=== PATIENT | male | born 1960 | race Caucasian/White ===

== ENCOUNTER 2023-01-20 11:21 | Inpatient (IN) | payer OTHER ==
[2023-01-20 12:10] LABS: #Basophils 0.1 10x3/uL (0.0-0.2); #Eosinphils 0.3 10x3/uL (0.0-0.5); #Monocytes 0.5 10x3/uL (0.0-1.1); #Neutrophils 4.5 10x3/uL (1.5-8.4); %Basophils 0.7 % (0.0-2.0); %Eosinophils 3.5 % (0.0-6.0); %Lymphocytes 30.5 % (18.0-47.0); %Monocytes 5.9 % (0.0-10.0); %Neutrophils 59.1 % (40.0-75.0); Hematocrit 42.7 % (38.8-50.0); Hemoglobin 14.2 g/dL (13.5-17.5); Mean Corpuscular HGB CONC 33.3 g/dL (32.0-36.0); Mean Corpuscular Hemoglobin 32.1 pg (27.0-33.0); Mean Corpuscular Volume 96.4 fl (81.2-95.1); Mean Platelet Volume 10.7 fl (7.4-10.4); Platelet Count 144 10x3/uL (150-450); RBC Distribution Width 12.6 % (11.5-14.5); Red Blood Cell (RBC) Count 4.43 10x6/uL (4.32-5.72); White Blood Cell (WBC) Count 7.6 10x3/uL (3.5-10.5)
[2023-01-20 12:24] LABS: PTT 29.5 sec (22.0-33.0); Prothrombin Time 10.7 sec (9.5-12.1)
[2023-01-20 12:36] LABS: ALT (SGPT) 31 U/L (8-55); AST (SGOT) 26 U/L (5-34); Albumin 4.3 g/dL (3.4-4.8); Alkaline Phosphatase 50 U/L (40-110); Anion Gap 13 mmol/L (10-20); BUN (Urea Nitrogen) 20 mg/dL (8.4-25.7); Bilirubin, Total 0.6 mg/dL (0.2-1.2); Calc. Creatinine Clearance 0 mL/min (70-130); Calcium 9.2 mg/dL (7.8-10.44); Carbon Dioxide 26 mmol/L (23-31); Chloride 100 mmol/L (98-107); Estimated GFR 55; Globulin 3.6 g/dL (2.4-3.5); Glucose 197 mg/dL (80-115); Magnesium 2.2 mg/dL (1.6-2.6); Protein, Total 7.9 g/dL (5.8-8.1); Sodium 135 mmol/L (136-145)
[2023-01-20] MEDS ORDERED: Morphine 4 MG/ML VIAL ONE (13:09)
[2023-01-20] MEDS ORDERED: Communication Order-Pharmacy FS SCH (13:45)
[2023-01-20] MEDS ORDERED: Acetaminophen 325 MG TAB PO PRN (13:47)
[2023-01-20] MEDS ORDERED: Morphine 2 MG/ML VIAL SLOW IVP PRN (14:08)
[2023-01-20] MEDS: Heparin 5,000 UNITS/ML VIAL SC SCH ×2 (16:00→19:44)
[2023-01-20] MEDS: HYDROcodone/Acetaminophen 5/325 mg Tablet PO PRN (16:10)
[2023-01-20] MEDS ORDERED: Dextrose 50% Abboject 50 ML SYRINGE SLOW IVP PRN (18:06)
[2023-01-20] MEDS ORDERED: HumaLOG 300 UNITS/3 ML VIAL SC PRN (18:06)
[2023-01-20] MEDS ORDERED: Dextrose 5% in Water 1,000 ML IV PRN (18:06)
[2023-01-20] MEDS ORDERED: Glucagon 1 MG/ML KIT IM PRN (18:06)
[2023-01-20] MEDS ORDERED: hydrALAZINE 20 MG/ML VIAL SLOW IVP PRN (18:08)
[2023-01-20] MEDS ORDERED: FLU VACC QS2023-24(6MOS UP)/PF 60 MCG/0.5 ML SYRINGE IM ONE (19:15)
[2023-01-20] MEDS: Gabapentin 400 MG CAP PO SCH (19:43)
[2023-01-20] MEDS: Carvedilol 3.125 MG TAB PO SCH (19:43)
[2023-01-20] MEDS: Ranolazine 500 MG ER.TAB PO SCH (19:43)
[2023-01-20] MEDS: Morphine 2 MG/ML VIAL SLOW IVP PRN (23:27)
[2023-01-21] MEDS: HYDROcodone/Acetaminophen 5/325 mg Tablet PO PRN (00:15)
[2023-01-21] MEDS: Morphine 2 MG/ML VIAL SLOW IVP PRN ×3 (04:04→18:53)
[2023-01-21] MEDS ORDERED: Lidocaine 1% (PF) 30 ML VIAL ONE (06:17)
[2023-01-21 06:23] LABS: #Basophils 0.1 10x3/uL (0.0-0.2); #Eosinphils 0.3 10x3/uL (0.0-0.5); #Monocytes 0.5 10x3/uL (0.0-1.1); %Basophils 0.8 % (0.0-2.0); %Eosinophils 4.4 % (0.0-6.0); %Lymphocytes 44.4 % (18.0-47.0); %Monocytes 7.5 % (0.0-10.0); %Neutrophils 42.3 % (40.0-75.0); Hematocrit 40.9 % (38.8-50.0); Hemoglobin 13.8 g/dL (13.5-17.5); Mean Corpuscular HGB CONC 33.7 g/dL (32.0-36.0); Mean Corpuscular Hemoglobin 32.5 pg (27.0-33.0); Mean Corpuscular Volume 96.5 fl (81.2-95.1); Mean Platelet Volume 10.7 fl (7.4-10.4); Platelet Count 135 10x3/uL (150-450); RBC Distribution Width 12.6 % (11.5-14.5); Red Blood Cell (RBC) Count 4.24 10x6/uL (4.32-5.72); White Blood Cell (WBC) Count 7.1 10x3/uL (3.5-10.5)
[2023-01-21 06:29] LABS: PTT 29.8 sec (22.0-33.0); Prothrombin Time 10.7 sec (9.5-12.1)
[2023-01-21 06:34] LABS: ALT (SGPT) 27 U/L (8-55); AST (SGOT) 23 U/L (5-34); Alkaline Phosphatase 54 U/L (40-110); Anion Gap 12 mmol/L (10-20); BUN (Urea Nitrogen) 19 mg/dL (8.4-25.7); Bilirubin, Total 0.3 mg/dL (0.2-1.2); Calc. Creatinine Clearance 79 mL/min (70-130); Calcium 8.8 mg/dL (7.8-10.44); Carbon Dioxide 28 mmol/L (23-31); Cardiac Risk 4.3 (Less than 4.5); Chloride 103 mmol/L (98-107); Cholesterol 77 mg/dl (< 200 Desired); Estimated GFR 61; Globulin 3.3 g/dL (2.4-3.5); Glucose 115 mg/dL (80-115); HDL Cholesterol 18 mg/dL (>60 Neg Risk); LDL Cholesterol, Calculated 24 mg/dL; Potassium 4.4 mmol/L (3.5-5.1); Protein, Total 7.3 g/dL (5.8-8.1); Sodium 139 mmol/L (136-145); Triglycerides 175 mg/dL (Less than 150)
[2023-01-21] MEDS ORDERED: fentaNYL 50 mcg/mL 1 mL Vial ONE (06:41)
[2023-01-21] MEDS ORDERED: Midazolam HCl 2 mg/2 ml Vial ONE (06:41)
[2023-01-21] MEDS ORDERED: Heparin 10,000 UNITS/ 10 ML VIAL ONE ×2 (06:42→07:23)
[2023-01-21] MEDS ORDERED: Protamine Sulfate 50 MG/5 ML VIAL ONE (08:14)
[2023-01-21] MEDS: Sodium Chloride 0.9% 1,000 ML IV SCH ×2 (09:30→18:45)
[2023-01-21] MEDS ORDERED: Iopamidol 300 61% 100 ML VIAL FS ONE (10:21)
[2023-01-21] MEDS: Gabapentin 400 MG CAP PO SCH ×3 (12:39→21:18)
[2023-01-21] MEDS: Aspirin 81 mg Enteric Coated Tablet PO SCH (12:39)
[2023-01-21] MEDS: Carvedilol 3.125 MG TAB PO SCH ×2 (12:39→21:18)
[2023-01-21] MEDS: Lisinopril 2.5 MG TAB PO SCH (12:40)
[2023-01-21] MEDS: Atorvastatin Calcium 40 MG TAB PO SCH (12:40)
[2023-01-21] MEDS: Empagliflozin 10 MG TAB PO SCH (12:40)
[2023-01-21] MEDS: Furosemide 20 MG TAB PO SCH (12:40)
[2023-01-21] MEDS: Ranolazine 500 MG ER.TAB PO SCH ×2 (12:41→21:18)
[2023-01-21 13:11] LABS: Hemoglobin A1c 6.2 % (4.0-6.0)
[2023-01-21] MEDS ORDERED: TICAGRELOR 90 MG TABLET PO SCH (21:00)
[2023-01-22 04:53] LABS: #Eosinphils 0.2 10x3/uL (0.0-0.5); #Monocytes 0.7 10x3/uL (0.0-1.1); #Neutrophils 4.3 10x3/uL (1.5-8.4); %Basophils 0.5 % (0.0-2.0); %Eosinophils 2.8 % (0.0-6.0); %Lymphocytes 30.8 % (18.0-47.0); %Monocytes 8.7 % (0.0-10.0); %Neutrophils 56.9 % (40.0-75.0); Hemoglobin 13.2 g/dL (13.5-17.5); Mean Corpuscular HGB CONC 33.8 g/dL (32.0-36.0); Mean Corpuscular Hemoglobin 32.6 pg (27.0-33.0); Mean Corpuscular Volume 96.3 fl (81.2-95.1); Mean Platelet Volume 10.6 fl (7.4-10.4); Platelet Count 127 10x3/uL (150-450); RBC Distribution Width 12.3 % (11.5-14.5); Red Blood Cell (RBC) Count 4.05 10x6/uL (4.32-5.72); White Blood Cell (WBC) Count 7.5 10x3/uL (3.5-10.5)
[2023-01-22 05:17] LABS: ALT (SGPT) 23 U/L (8-55); AST (SGOT) 23 U/L (5-34); Albumin 3.7 g/dL (3.4-4.8); Alkaline Phosphatase 37 U/L (40-110); Anion Gap 13 mmol/L (10-20); BUN (Urea Nitrogen) 16 mg/dL (8.4-25.7); Bilirubin, Total 0.6 mg/dL (0.2-1.2); Calc. Creatinine Clearance 89 mL/min (70-130); Calcium 8.7 mg/dL (7.8-10.44); Carbon Dioxide 23 mmol/L (23-31); Chloride 102 mmol/L (98-107); Estimated GFR 70; Globulin 3.3 g/dL (2.4-3.5); Glucose 91 mg/dL (80-115); Potassium 4.2 mmol/L (3.5-5.1); Sodium 134 mmol/L (136-145)
[2023-01-22] MEDS ORDERED: Rivaroxaban 2.5 MG TAB PO SCH (09:00)
[2023-01-22] MEDS ORDERED: Clopidogrel Bisulfate 75 MG TAB PO SCH (09:00)
[2023-01-22] MEDS: Empagliflozin 10 MG TAB PO SCH (09:03)
[2023-01-22] MEDS: Furosemide 20 MG TAB PO SCH (09:04)
[2023-01-22] MEDS: Lisinopril 2.5 MG TAB PO SCH (09:04)
[2023-01-22] MEDS: Carvedilol 3.125 MG TAB PO SCH (09:04)
[2023-01-22] MEDS: Atorvastatin Calcium 40 MG TAB PO SCH (09:04)
[2023-01-22] MEDS: Aspirin 81 mg Enteric Coated Tablet PO SCH (09:04)
[2023-01-22] MEDS: Gabapentin 400 MG CAP PO SCH ×2 (09:05→14:32)
[2023-01-22] MEDS: Ranolazine 500 MG ER.TAB PO SCH (09:05)
[2023-01-22 12:12] VITALS: BP 113/56; TEMP 97.9
== END 2023-01-22 15:45 | disposition home or self-care (01) | DRG 253 ==
LOC: CSHERS 11:21 → SUATTDRO 11:21 → CSHTELE 13:41
PROVIDERS: ADMIT Internal Medicine; ATTEND Internal Medicine
PROC: B4101ZZ Fluoroscopy of Abdominal Aorta using Low Osmolar Contrast (ICD-10-PCS; principal; 2023-01-21)
PROC: 047K3Z1 Dilation of Right Femoral Artery using Drug-Coated Balloon, Percutaneous Approach (ICD-10-PCS; 2023-01-21)
PROC: 047M3Z1 Dilation of Right Popliteal Artery using Drug-Coated Balloon, Percutaneous Approach (ICD-10-PCS; 2023-01-21)
PROC: 047T3Z1 Dilation of Right Peroneal Artery using Drug-Coated Balloon, Percutaneous Approach (ICD-10-PCS; 2023-01-21)
PROC: B41G1ZZ Fluoroscopy of Left Lower Extremity Arteries using Low Osmolar Contrast (ICD-10-PCS; 2023-01-21)
PROC: B41F1ZZ Fluoroscopy of Right Lower Extremity Arteries using Low Osmolar Contrast (ICD-10-PCS; 2023-01-21)
DX: I70.221 Atherosclerosis of native arteries of extremities with rest pain, right leg (principal); I50.42 Chronic combined systolic (congestive) and diastolic (congestive) heart failure; N17.9 Acute kidney failure, unspecified; E11.51 Type 2 diabetes mellitus with diabetic peripheral angiopathy without gangrene; I25.10 Atherosclerotic heart disease of native coronary artery without angina pectoris; E78.5 Hyperlipidemia, unspecified; E87.71 Transfusion associated circulatory overload; I11.0 Hypertensive heart disease with heart failure; Z82.49 Family history of ischemic heart disease and other diseases of the circulatory system; Z87.891 Personal history of nicotine dependence; Z79.899 Other long term (current) drug therapy; Z79.82 Long term (current) use of aspirin; Z79.84 Long term (current) use of oral hypoglycemic drugs; Z95.5 Presence of coronary angioplasty implant and graft
CPT/HCPCS: 36415; 36416; 37224; 75716; 75736; 75774; 80053; 80061; 83036; 83735; 83880; 85025; 85347; 85610; 85730; 93923; 96374; 99152; 99153; C1725; C1760; C1769; C1894; C2623; J1644; J2001; J2250; J2270; J2272; J2720; J3010; J7050

== ENCOUNTER 2024-01-12 15:40 | Inpatient (IN) | payer OTHER ==
[~2024-01-12 15:40] MED LIST: Iopamidol 300 61% 100 ML VIAL FS ONE
[2024-01-12] MEDS ORDERED: Ondansetron PF 4 MG/2 ML Vial ONE (16:10)
[2024-01-12] MEDS ORDERED: Acetaminophen 500 MG TAB ONE (16:11)
[2024-01-12 16:51] LABS: ALT (SGPT) 15 U/L (8-55); AST (SGOT) 16 U/L (5-34); Albumin 3.5 g/dL (3.4-4.8); Alkaline Phosphatase 35 U/L (40-110); Anion Gap 13 mmol/L (10-20); BUN (Urea Nitrogen) 25 mg/dL (8.4-25.7); Bilirubin, Total 1.1 mg/dL (0.2-1.2); Calc. Creatinine Clearance 0 mL/min (70-130); Calcium 9.1 mg/dL (7.8-10.44); Carbon Dioxide 24 mmol/L (23-31); Chloride 99 mmol/L (98-107); Estimated GFR 43; Globulin 3.4 g/dL (2.4-3.5); Glucose 221 mg/dL (80-115); Potassium 3.8 mmol/L (3.5-5.1); Protein, Total 6.9 g/dL (5.8-8.1); Sodium 132 mmol/L (136-145)
[2024-01-12 16:52] LABS: Hematocrit 40.1 % (38.8-50.0); Hemoglobin 13.5 g/dL (13.5-17.5); Mean Corpuscular HGB CONC 33.7 g/dL (32.0-36.0); Mean Corpuscular Hemoglobin 33.8 pg (27.0-33.0); Mean Corpuscular Volume 100.3 fL (81.2-95.1); Platelet Count 113 10x3/uL (150-450); RBC Distribution Width 12.2 % (11.5-14.5); White Blood Cell (WBC) Count 21.9 10x3/uL (3.5-10.5)
[2024-01-12 17:30] LABS: Bilirubin Neg (Negative); Blood, Urine Negative (Negative); Clarity Clear (Clear); Glucose, Urine (Dipstick) >=1000 mg/dL (Negative); Ketone, Urine Negative (Negative); Leukocyte Negative (Negative); Nitrite Negative (Negative); Protein, Urine (Dipstick) 15 mg/dl (Neg-Trace)
[2024-01-12 17:36] LABS: Band 18 % (5-11); Eosinophils 1 % (0-10); Lymphocytes 8 % (21-51); Monocytes 6 % (0-10)
[2024-01-12 17:38] LABS: Neutrophil 66 % (42-75); Platelet Adequacy Comment Appears Decreased; RBC Morph Comment Within Normal Limits
[2024-01-12 17:39] LABS: Large Platelets SLIGHT (None Seen)
[2024-01-12 17:44] LABS: MDiff Complete? YES
[2024-01-12 18:19] LABS: Bacteria/HPF None Seen HPF (None Seen); CAUTI Indications for Culture Alt mental st,lethar; RBC/HPF None Seen HPF (0-3); Squamous Epithelial 0-3 HPF (0-3); Urine Culture Reflex No No; WBC/HPF None Seen HPF (0-3)
[2024-01-12] MEDS ORDERED: Piperacillin/Tazobactam 4.5 GM VIAL ONE (18:46)
[2024-01-12] MEDS ORDERED: Dextrose 50% Abboject 50 ML SYRINGE SLOW IVP PRN (19:33)
[2024-01-12] MEDS ORDERED: Guaifenesin DM 100-10/5 ML UDCUP PO PRN (19:33)
[2024-01-12] MEDS ORDERED: Ondansetron PF 4 MG/2 ML Vial IVP PRN (19:33)
[2024-01-12] MEDS ORDERED: Insulin Lispro 100 UNIT/ML 10 ML VIAL SC PRN (19:33)
[2024-01-12] MEDS ORDERED: traMADol HCl 50 MG TAB PO PRN (19:33)
[2024-01-12] MEDS ORDERED: Calcium Carbonate 500 MG ChewTAB PO PRN (19:33)
[2024-01-12] MEDS ORDERED: Senokot S 8.6-50 MG TAB PO PRN (19:33)
[2024-01-12] MEDS ORDERED: Glucagon 1 MG/ML KIT IM PRN (19:33)
[2024-01-12] MEDS ORDERED: Dextrose 5% in Water 1,000 ML IV PRN (19:33)
[2024-01-12] MEDS ORDERED: Zolpidem Tartrate 5 MG TAB PO PRN (19:33)
[2024-01-12] MEDS ORDERED: Acetaminophen 325 MG TAB ONE (20:15)
[2024-01-12] MEDS ORDERED: Pharmacy to Dose VANC & ABX IVPB PRN (20:17)
[2024-01-12 22:35] VITALS: BMI 29.3
[2024-01-12] MEDS: Gabapentin 400 MG CAP PO SCH (22:39)
[2024-01-12] MEDS: Atorvastatin Calcium 40 MG TAB PO SCH (22:40)
[2024-01-12] MEDS: Albumin 25% 25 GM (100 mL) BOT IVPB SCH (22:40)
[2024-01-12] MEDS: VANCOMYCIN 2 GRAM/400 ML BAG 2 GM in Premix 1 BAG IVPB SCH (22:41)
[2024-01-12] MEDS: Piperacillin/Tazobactam 3.375 GM in Sodium Chloride 0.9% 100 ML IVPB SCH (23:09)
[2024-01-12] MEDS: Rivaroxaban 2.5 MG TAB PO SCH (23:10)
[2024-01-12] MEDS: Lactated Ringer's 500 ML IV SCH (23:10)
[2024-01-12] MEDS: Acetaminophen 325 MG TAB PO SCH (23:10)
[2024-01-13 03:48] LABS: Legionella Urinary Ag Negative (Negative); Strep pneumo Urine Ag NEGATIVE (NEGATIVE)
[2024-01-13 04:03] LABS: Anion Gap 14 mmol/L (10-20); BUN (Urea Nitrogen) 26 mg/dL (8.4-25.7); Calc. Creatinine Clearance 65 mL/min (70-130); Carbon Dioxide 22 mmol/L (23-31); Chloride 104 mmol/L (98-107); Estimated GFR 50; Glucose 184 mg/dL (80-115); Potassium 3.8 mmol/L (3.5-5.1); Sodium 136 mmol/L (136-145)
[2024-01-13 04:05] LABS: Hematocrit 34.6 % (38.8-50.0); Hemoglobin 11.6 g/dL (13.5-17.5); Mean Corpuscular HGB CONC 33.5 g/dL (32.0-36.0); Mean Corpuscular Hemoglobin 33.7 pg (27.0-33.0); Mean Corpuscular Volume 100.6 fL (81.2-95.1); Mean Platelet Volume 11.7 fL (7.4-10.4); Platelet Count 93 10x3/uL (150-450); RBC Distribution Width 12.5 % (11.5-14.5); Red Blood Cell (RBC) Count 3.44 10x6/uL (4.32-5.72); White Blood Cell (WBC) Count 20.8 10x3/uL (3.5-10.5)
[2024-01-13 04:50] LABS: MDiff Complete? YES
[2024-01-13 04:57] LABS: Vancomycin, Random 17.6 ug/mL (See Comment)
[2024-01-13 06:40] LABS: Influenza A by NAA Not Detected (NotDetected); Influenza B by NAA Not Detected (NotDetected); RSV by NAA Not Detected (NotDetected); SARS-CoV-2 NAA Rapid Test Not Detected (NotDetected)
[2024-01-13 07:03] LABS: Band 28 % (5-11); Lymphocytes 5 % (21-51); Monocytes 4 % (0-10); Neutrophil 63 % (42-75)
[2024-01-13 07:04] LABS: Large Platelets SLIGHT (None Seen); Platelet Adequacy Comment Appears Decreased; RBC Morph Comment Within Normal Limits
[2024-01-13] MEDS: Lactated Ringer's 500 ML IV SCH (07:52)
[2024-01-13] MEDS: Icosapent Ethyl 1 GM CAPSULE PO SCH (08:49)
[2024-01-13] MEDS: Escitalopram Oxalate 20 mg Tablet PO SCH (08:49)
[2024-01-13] MEDS: Glimepiride 4 MG TAB PO SCH (08:50)
[2024-01-13] MEDS: Aspirin 81 mg Enteric Coated Tablet PO SCH (08:50)
[2024-01-13] MEDS: Clopidogrel Bisulfate 75 MG TAB PO SCH (08:50)
[2024-01-13] MEDS: Famotidine 20 MG TAB PO SCH (08:50)
[2024-01-13] MEDS: Empagliflozin 10 MG TAB PO SCH (08:51)
[2024-01-13] MEDS ORDERED: Ipratropium/Albuterol 3 ML NEB NEB PRN (09:41)
[2024-01-13] MEDS: Loperamide HCl 2 MG CAP PO PRN (12:08)
[2024-01-13] MEDS: Doxycycline 100 MG CAP PO SCH ×2 (12:08→20:31)
[2024-01-13] MEDS: Acetaminophen 325 MG TAB PO PRN (16:41)
[2024-01-13] MEDS: Budesonide 0.5 MG/2 ML NEB INH SCH (19:50)
[2024-01-13] MEDS ORDERED: VANCOMYCIN 1.25 GM/250 ML BAG 1.25 GM in Premix 1 BAG IVPB SCH (20:00)
[2024-01-13] MEDS: Saccharomyces boulardii 250 MG CAP PO SCH (20:31)
[2024-01-13] MEDS: Ranolazine ER 500 MG TAB PO SCH (20:31)
[2024-01-13] MEDS: Vancomycin 1.5 GRAM/300 ML BAG 1.5 GM in Premix 1 BAG IVPB SCH (20:37)
[2024-01-14 03:54] LABS: MDiff Complete? YES
[2024-01-14 03:55] LABS: #Basophils 0.03 10x3/uL (0.0-0.2); #Eosinophils 0.35 10x3/uL (0.0-0.5); #Monocytes 0.83 10x3/uL (0.0-1.1); #Neutrophils 11.61 10x3/uL (1.5-8.4); %Basophils 0.2 % (0.0-2.0); %Eosinophils 2.3 % (0.0-6.0); %Lymphocytes 13.8 % (18.0-47.0); %Monocytes 5.5 % (0.0-10.0); %Neutrophils 76.9 % (40.0-75.0); Hematocrit 34.3 % (38.8-50.0); Hemoglobin 11.4 g/dL (13.5-17.5); Mean Corpuscular HGB CONC 33.2 g/dL (32.0-36.0); Mean Corpuscular Hemoglobin 33.1 pg (27.0-33.0); Mean Corpuscular Volume 99.7 fL (81.2-95.1); RBC Distribution Width 12.5 % (11.5-14.5); Red Blood Cell (RBC) Count 3.44 10x6/uL (4.32-5.72); White Blood Cell (WBC) Count 15.1 10x3/uL (3.5-10.5)
[2024-01-14 04:00] LABS: Mean Platelet Volume 11.7 fL (7.4-10.4); Platelet Count 95 10x3/uL (150-450)
[2024-01-14 04:07] LABS: Anion Gap 14 mmol/L (10-20); BUN (Urea Nitrogen) 22 mg/dL (8.4-25.7); Calc. Creatinine Clearance 78 mL/min (70-130); Calcium 8.6 mg/dL (7.8-10.44); Carbon Dioxide 20 mmol/L (23-31); Chloride 109 mmol/L (98-107); Estimated GFR 62; Glucose 61 mg/dL (80-115); Magnesium 2.1 mg/dL (1.6-2.6); Potassium 3.7 mmol/L (3.5-5.1); Sodium 139 mmol/L (136-145)
[2024-01-14] MEDS: Vancomycin 1 GM in Sodium Chloride 0.9% 250 ML 250 ML IVPB SCH (09:29)
[2024-01-14 11:09] VITALS: BMI 29.3
[2024-01-14] MEDS: guaiFENesin ER 600 MG TAB PO SCH ×2 (11:27→21:14)
[2024-01-14] MEDS ORDERED: Metoprolol Tartrate 25 MG TAB PO SCH (21:00)
[2024-01-14] MEDS: Metoprolol Tartrate 25 MG TAB PO SCH (21:19)
[2024-01-15 04:30] LABS: #Basophils 0.03 10x3/uL (0.0-0.2); #Monocytes 0.52 10x3/uL (0.0-1.1); #Neutrophils 7.13 10x3/uL (1.5-8.4); %Basophils 0.3 % (0.0-2.0); %Eosinophils 4.2 % (0.0-6.0); %Lymphocytes 15.7 % (18.0-47.0); %Monocytes 5.4 % (0.0-10.0); %Neutrophils 74.1 % (40.0-75.0); Hematocrit 36.4 % (38.8-50.0); Hemoglobin 12.3 g/dL (13.5-17.5); Mean Corpuscular HGB CONC 33.8 g/dL (32.0-36.0); Mean Corpuscular Hemoglobin 33.3 pg (27.0-33.0); Mean Corpuscular Volume 98.6 fL (81.2-95.1); RBC Distribution Width 12.4 % (11.5-14.5); Red Blood Cell (RBC) Count 3.69 10x6/uL (4.32-5.72); White Blood Cell (WBC) Count 9.6 10x3/uL (3.5-10.5)
[2024-01-15 04:36] LABS: Mean Platelet Volume 11.5 fL (7.4-10.4); Platelet Count 106 10x3/uL (150-450)
[2024-01-15 04:40] LABS: Anion Gap 14 mmol/L (10-20); BUN (Urea Nitrogen) 17 mg/dL (8.4-25.7); Calc. Creatinine Clearance 83 mL/min (70-130); Calcium 9.6 mg/dL (7.8-10.44); Carbon Dioxide 24 mmol/L (23-31); Chloride 104 mmol/L (98-107); Estimated GFR 66; Glucose 121 mg/dL (80-115); Potassium 4.1 mmol/L (3.5-5.1); Sodium 138 mmol/L (136-145)
[2024-01-15 04:41] LABS: Vancomycin, Random 19.2 ug/mL (See Comment)
[2024-01-15] MEDS: Glimepiride 2 MG TAB PO SCH (08:37)
[2024-01-15] MEDS ORDERED: Vancomycin 1 GM in Sodium Chloride 0.9% 250 ML 250 ML IVPB SCH (09:00)
[2024-01-16 04:30] LABS: #Basophils 0.03 10x3/uL (0.0-0.2); #Eosinophils 0.47 10x3/uL (0.0-0.5); #Monocytes 0.67 10x3/uL (0.0-1.1); #Neutrophils 5.29 10x3/uL (1.5-8.4); %Basophils 0.4 % (0.0-2.0); %Eosinophils 5.6 % (0.0-6.0); %Lymphocytes 22.2 % (18.0-47.0); %Neutrophils 63.3 % (40.0-75.0); Hematocrit 40.2 % (38.8-50.0); Hemoglobin 13.3 g/dL (13.5-17.5); Mean Corpuscular HGB CONC 33.1 g/dL (32.0-36.0); Mean Corpuscular Hemoglobin 32.3 pg (27.0-33.0); Mean Corpuscular Volume 97.6 fL (81.2-95.1); Mean Platelet Volume 10.9 fL (7.4-10.4); Platelet Count 129 10x3/uL (150-450); RBC Distribution Width 12.1 % (11.5-14.5); Red Blood Cell (RBC) Count 4.12 10x6/uL (4.32-5.72); White Blood Cell (WBC) Count 8.4 10x3/uL (3.5-10.5)
[2024-01-16 04:42] LABS: Anion Gap 15 mmol/L (10-20); BUN (Urea Nitrogen) 17 mg/dL (8.4-25.7); Calc. Creatinine Clearance 89 mL/min (70-130); Calcium 9.2 mg/dL (7.8-10.44); Carbon Dioxide 23 mmol/L (23-31); Chloride 103 mmol/L (98-107); Estimated GFR 73; Glucose 140 mg/dL (80-115); Potassium 3.8 mmol/L (3.5-5.1); Sodium 137 mmol/L (136-145)
[2024-01-16 12:01] VITALS: BP 107/65; TEMP 98.6
== END 2024-01-16 15:29 | disposition home or self-care (01) | DRG 871 ==
LOC: CSHERS 15:40 → CSHTELE 19:33
PROVIDERS: ADMIT Student in an Organized Health Care Education/Training Program; ATTEND Internal Medicine
DX: A41.9 Sepsis, unspecified organism (principal); J15.69 Pneumonia due to other Gram-negative bacteria; I13.0 Hypertensive heart and chronic kidney disease with heart failure and stage 1 through stage 4 chronic kidney disease, or unspecified chronic kidney disease; I50.42 Chronic combined systolic (congestive) and diastolic (congestive) heart failure; E87.1 Hypo-osmolality and hyponatremia; E87.20 Acidosis, unspecified; N17.9 Acute kidney failure, unspecified; N18.30 Chronic kidney disease, stage 3 unspecified; R65.20 Severe sepsis without septic shock; I25.10 Atherosclerotic heart disease of native coronary artery without angina pectoris; I95.89 Other hypotension; E11.649 Type 2 diabetes mellitus with hypoglycemia without coma; E11.40 Type 2 diabetes mellitus with diabetic neuropathy, unspecified; E11.22 Type 2 diabetes mellitus with diabetic chronic kidney disease; Z98.890 Other specified postprocedural states; Z95.5 Presence of coronary angioplasty implant and graft; Z87.891 Personal history of nicotine dependence; Z79.899 Other long term (current) drug therapy; Z79.82 Long term (current) use of aspirin
CPT/HCPCS: 0241U; 36415; 36416; 70450; 71045; 74177; 80048; 80053; 80202; 81001; 83605; 83690; 83735; 84145; 85025; 86140; 87040; 87081; 87428; 87449; 87899; 94640; 96361; 96374; 96375; 97139; J2405; J2543; J3370; J7050; J7120; J7626; P9047; Q9967

== ENCOUNTER 2024-04-28 14:55 | Outpatient (CLI) | payer OTHER | END 2024-04-28 14:56 | disposition home or self-care (01) | LOC: CSHRAD 14:55 | PROVIDERS: ATTEND Nurse Practitioner Family | DX: M79.672 Pain in left foot (principal); L97.529 Non-pressure chronic ulcer of other part of left foot with unspecified severity ==

== ENCOUNTER 2024-05-24 09:55 | Outpatient (CLI) | payer OTHER | END 2024-05-24 09:56 | disposition home or self-care (01) | LOC: CSHWCC 09:55 | PROVIDERS: ATTEND Nurse Practitioner Family | DX: E11.621 Type 2 diabetes mellitus with foot ulcer (principal); L97.521 Non-pressure chronic ulcer of other part of left foot limited to breakdown of skin; I25.10 Atherosclerotic heart disease of native coronary artery without angina pectoris; E11.59 Type 2 diabetes mellitus with other circulatory complications | CPT/HCPCS: 11042; 99212; G0463 ==

== ENCOUNTER 2024-11-07 12:48 | Outpatient (CLI) | payer OTHER | END 2024-11-07 12:49 | disposition home or self-care (01) | LOC: CSHWCC 12:48 | PROVIDERS: ATTEND Nurse Practitioner Family | DX: T24.231D Burn of second degree of right lower leg, subsequent encounter (principal); E11.621 Type 2 diabetes mellitus with foot ulcer; L97.521 Non-pressure chronic ulcer of other part of left foot limited to breakdown of skin; I25.10 Atherosclerotic heart disease of native coronary artery without angina pectoris; E11.59 Type 2 diabetes mellitus with other circulatory complications | CPT/HCPCS: 29445 ==

== ENCOUNTER 2024-11-15 10:32 | Outpatient (CLI) | payer OTHER | END 2024-11-15 10:33 | disposition home or self-care (01) | LOC: CSHWCC 10:32 | PROVIDERS: ATTEND Nurse Practitioner Family | DX: T24.231D Burn of second degree of right lower leg, subsequent encounter (principal); E11.621 Type 2 diabetes mellitus with foot ulcer; L97.521 Non-pressure chronic ulcer of other part of left foot limited to breakdown of skin; I25.10 Atherosclerotic heart disease of native coronary artery without angina pectoris; E11.59 Type 2 diabetes mellitus with other circulatory complications | CPT/HCPCS: 11042 ==

== ENCOUNTER 2024-11-30 09:25 | Outpatient (CLI) | payer OTHER | END 2024-11-30 09:26 | disposition home or self-care (01) | LOC: CSHWCC 09:25 | PROVIDERS: ATTEND Nurse Practitioner Family | DX: E11.621 Type 2 diabetes mellitus with foot ulcer (principal); L97.521 Non-pressure chronic ulcer of other part of left foot limited to breakdown of skin; E11.51 Type 2 diabetes mellitus with diabetic peripheral angiopathy without gangrene; I25.10 Atherosclerotic heart disease of native coronary artery without angina pectoris | CPT/HCPCS: 11042; 99213; G0463 ==

== ENCOUNTER 2024-11-30 10:38 | Outpatient (CLI) | payer OTHER | END 2024-11-30 10:39 | disposition home or self-care (01) | LOC: CSHRAD 10:38 | PROVIDERS: ATTEND Nurse Practitioner Family | DX: L97.521 Non-pressure chronic ulcer of other part of left foot limited to breakdown of skin (principal); M86.8X7 Other osteomyelitis, ankle and foot ==

== ENCOUNTER 2024-12-07 09:55 | Outpatient (CLI) | payer OTHER | END 2024-12-07 09:56 | disposition home or self-care (01) | LOC: CSHWCC 09:55 | PROVIDERS: ATTEND Nurse Practitioner Family | DX: E11.621 Type 2 diabetes mellitus with foot ulcer (principal); L97.521 Non-pressure chronic ulcer of other part of left foot limited to breakdown of skin; I25.10 Atherosclerotic heart disease of native coronary artery without angina pectoris; E11.59 Type 2 diabetes mellitus with other circulatory complications | CPT/HCPCS: 11044; 99213; G0463 ==

== ENCOUNTER 2024-12-14 09:36 | Outpatient (CLI) | payer OTHER | END 2024-12-14 09:37 | disposition home or self-care (01) | LOC: CSHWCC 09:36 | PROVIDERS: ATTEND Nurse Practitioner Family | DX: E11.621 Type 2 diabetes mellitus with foot ulcer (principal); L97.521 Non-pressure chronic ulcer of other part of left foot limited to breakdown of skin; E11.51 Type 2 diabetes mellitus with diabetic peripheral angiopathy without gangrene; I25.10 Atherosclerotic heart disease of native coronary artery without angina pectoris; M86.172 Other acute osteomyelitis, left ankle and foot | CPT/HCPCS: 11042; 99213; G0463 ==

== ENCOUNTER 2024-12-14 11:19 | Outpatient (CLI) | payer OTHER | END 2024-12-14 11:20 | disposition home or self-care (01) | LOC: CSHRAD 11:19 | PROVIDERS: ATTEND Nurse Practitioner Family | DX: L97.521 Non-pressure chronic ulcer of other part of left foot limited to breakdown of skin (principal) | CPT/HCPCS: 71046 ==

== ENCOUNTER 2024-12-19 08:21 | Outpatient (CLI) | payer OTHER | END 2024-12-19 08:22 | disposition home or self-care (01) | LOC: CSHWCC 08:21 | PROVIDERS: ATTEND Nurse Practitioner Family | DX: E11.621 Type 2 diabetes mellitus with foot ulcer (principal); L97.521 Non-pressure chronic ulcer of other part of left foot limited to breakdown of skin; E11.51 Type 2 diabetes mellitus with diabetic peripheral angiopathy without gangrene; I25.10 Atherosclerotic heart disease of native coronary artery without angina pectoris; M86.172 Other acute osteomyelitis, left ankle and foot | CPT/HCPCS: 36416; G0277 ==

== ENCOUNTER 2024-12-20 08:29 | Outpatient (CLI) | payer OTHER | END 2024-12-20 08:30 | disposition home or self-care (01) | LOC: CSHWCC 08:29 | PROVIDERS: ATTEND Nurse Practitioner Family | DX: E11.621 Type 2 diabetes mellitus with foot ulcer (principal); L97.521 Non-pressure chronic ulcer of other part of left foot limited to breakdown of skin; E11.51 Type 2 diabetes mellitus with diabetic peripheral angiopathy without gangrene; E11.69 Type 2 diabetes mellitus with other specified complication; M86.172 Other acute osteomyelitis, left ankle and foot; I25.10 Atherosclerotic heart disease of native coronary artery without angina pectoris | CPT/HCPCS: 36416; G0277 ==

== ENCOUNTER 2024-12-22 08:09 | Outpatient (CLI) | payer OTHER | END 2024-12-22 08:10 | disposition home or self-care (01) | LOC: CSHWCC 08:09 | PROVIDERS: ATTEND Nurse Practitioner Family | DX: E11.621 Type 2 diabetes mellitus with foot ulcer (principal); L97.521 Non-pressure chronic ulcer of other part of left foot limited to breakdown of skin; I25.10 Atherosclerotic heart disease of native coronary artery without angina pectoris; M86.172 Other acute osteomyelitis, left ankle and foot; E11.51 Type 2 diabetes mellitus with diabetic peripheral angiopathy without gangrene | CPT/HCPCS: 36416; G0277 ==

== ENCOUNTER 2024-12-25 08:22 | Outpatient (CLI) | payer OTHER | END 2024-12-25 08:23 | disposition home or self-care (01) | LOC: CSHWCC 08:22 | PROVIDERS: ATTEND Nurse Practitioner Family | DX: E11.621 Type 2 diabetes mellitus with foot ulcer (principal); L97.521 Non-pressure chronic ulcer of other part of left foot limited to breakdown of skin; I25.10 Atherosclerotic heart disease of native coronary artery without angina pectoris; M86.172 Other acute osteomyelitis, left ankle and foot; E11.51 Type 2 diabetes mellitus with diabetic peripheral angiopathy without gangrene | CPT/HCPCS: 36416; G0277 ==

== ENCOUNTER 2024-12-26 08:24 | Outpatient (CLI) | payer OTHER | END 2024-12-26 08:25 | disposition home or self-care (01) | LOC: CSHWCC 08:24 | PROVIDERS: ATTEND Nurse Practitioner Family | DX: E11.621 Type 2 diabetes mellitus with foot ulcer (principal); L97.521 Non-pressure chronic ulcer of other part of left foot limited to breakdown of skin; E11.51 Type 2 diabetes mellitus with diabetic peripheral angiopathy without gangrene; I25.10 Atherosclerotic heart disease of native coronary artery without angina pectoris; M86.172 Other acute osteomyelitis, left ankle and foot | CPT/HCPCS: 36416; G0277 ==

== ENCOUNTER 2024-12-27 08:10 | Outpatient (CLI) | payer OTHER | END 2024-12-27 08:11 | disposition home or self-care (01) | LOC: CSHWCC 08:10 | PROVIDERS: ATTEND Nurse Practitioner Family | DX: E11.621 Type 2 diabetes mellitus with foot ulcer (principal); L97.521 Non-pressure chronic ulcer of other part of left foot limited to breakdown of skin; I25.10 Atherosclerotic heart disease of native coronary artery without angina pectoris; E11.69 Type 2 diabetes mellitus with other specified complication; M86.172 Other acute osteomyelitis, left ankle and foot; E11.51 Type 2 diabetes mellitus with diabetic peripheral angiopathy without gangrene | CPT/HCPCS: 36416; G0277 ==

== ENCOUNTER 2024-12-28 08:25 | Outpatient (CLI) | payer OTHER | END 2024-12-28 08:26 | disposition home or self-care (01) | LOC: CSHWCC 08:25 | PROVIDERS: ATTEND Nurse Practitioner Family | DX: E11.621 Type 2 diabetes mellitus with foot ulcer (principal); L97.521 Non-pressure chronic ulcer of other part of left foot limited to breakdown of skin; E11.51 Type 2 diabetes mellitus with diabetic peripheral angiopathy without gangrene; I25.10 Atherosclerotic heart disease of native coronary artery without angina pectoris; M86.172 Other acute osteomyelitis, left ankle and foot | CPT/HCPCS: 11042; 36416; 99213; G0277; G0463 ==

== ENCOUNTER 2024-12-29 08:26 | Outpatient (CLI) | payer OTHER | END 2024-12-29 08:27 | disposition home or self-care (01) | LOC: CSHWCC 08:26 | PROVIDERS: ATTEND Nurse Practitioner Family | DX: E11.621 Type 2 diabetes mellitus with foot ulcer (principal); L97.521 Non-pressure chronic ulcer of other part of left foot limited to breakdown of skin; E11.51 Type 2 diabetes mellitus with diabetic peripheral angiopathy without gangrene; E11.69 Type 2 diabetes mellitus with other specified complication; M86.172 Other acute osteomyelitis, left ankle and foot; I25.10 Atherosclerotic heart disease of native coronary artery without angina pectoris | CPT/HCPCS: 36416; G0277 ==

== ENCOUNTER 2025-01-03 12:37 | Outpatient (CLI) | payer OTHER | END 2025-01-03 12:38 | disposition home or self-care (01) | LOC: CSHWCC 12:37 | PROVIDERS: ATTEND Nurse Practitioner Family | DX: E11.621 Type 2 diabetes mellitus with foot ulcer (principal); L97.521 Non-pressure chronic ulcer of other part of left foot limited to breakdown of skin; E11.51 Type 2 diabetes mellitus with diabetic peripheral angiopathy without gangrene; E11.69 Type 2 diabetes mellitus with other specified complication; M86.172 Other acute osteomyelitis, left ankle and foot; I25.10 Atherosclerotic heart disease of native coronary artery without angina pectoris | CPT/HCPCS: 36416; G0277 ==

== ENCOUNTER 2025-01-04 08:10 | Outpatient (CLI) | payer OTHER | END 2025-01-04 08:11 | disposition home or self-care (01) | LOC: CSHWCC 08:10 | PROVIDERS: ATTEND Nurse Practitioner Family | DX: E11.621 Type 2 diabetes mellitus with foot ulcer (principal); L97.521 Non-pressure chronic ulcer of other part of left foot limited to breakdown of skin; I25.10 Atherosclerotic heart disease of native coronary artery without angina pectoris; E11.51 Type 2 diabetes mellitus with diabetic peripheral angiopathy without gangrene; M86.172 Other acute osteomyelitis, left ankle and foot | CPT/HCPCS: 11042; 36416; 99213; G0277; G0463 ==

== ENCOUNTER 2025-01-05 08:00 | Outpatient (CLI) | payer OTHER | END 2025-01-05 08:01 | disposition home or self-care (01) | LOC: CSHWCC 08:00 | PROVIDERS: ATTEND Nurse Practitioner Family | DX: E11.621 Type 2 diabetes mellitus with foot ulcer (principal); L97.521 Non-pressure chronic ulcer of other part of left foot limited to breakdown of skin; I25.10 Atherosclerotic heart disease of native coronary artery without angina pectoris; E11.51 Type 2 diabetes mellitus with diabetic peripheral angiopathy without gangrene; E11.69 Type 2 diabetes mellitus with other specified complication; M86.172 Other acute osteomyelitis, left ankle and foot | CPT/HCPCS: 36416; G0277 ==

== ENCOUNTER 2025-01-12 08:03 | Outpatient (CLI) | payer OTHER | END 2025-01-12 08:04 | disposition home or self-care (01) | LOC: CSHWCC 08:03 | PROVIDERS: ATTEND Nurse Practitioner Family | DX: E11.621 Type 2 diabetes mellitus with foot ulcer (principal); L97.521 Non-pressure chronic ulcer of other part of left foot limited to breakdown of skin; I25.10 Atherosclerotic heart disease of native coronary artery without angina pectoris; E11.51 Type 2 diabetes mellitus with diabetic peripheral angiopathy without gangrene; M86.172 Other acute osteomyelitis, left ankle and foot | CPT/HCPCS: 36416; G0277 ==

== ENCOUNTER 2025-01-15 08:08 | Outpatient (CLI) | payer OTHER | END 2025-01-15 08:09 | disposition home or self-care (01) | LOC: CSHWCC 08:08 | PROVIDERS: ATTEND Nurse Practitioner Family | DX: E11.621 Type 2 diabetes mellitus with foot ulcer (principal); L97.521 Non-pressure chronic ulcer of other part of left foot limited to breakdown of skin; E11.51 Type 2 diabetes mellitus with diabetic peripheral angiopathy without gangrene; I25.10 Atherosclerotic heart disease of native coronary artery without angina pectoris; E11.69 Type 2 diabetes mellitus with other specified complication; M86.172 Other acute osteomyelitis, left ankle and foot | CPT/HCPCS: 36416; G0277 ==

== ENCOUNTER 2025-01-16 08:02 | Outpatient (CLI) | payer OTHER | END 2025-01-16 08:03 | disposition home or self-care (01) | LOC: CSHWCC 08:02 | PROVIDERS: ATTEND Nurse Practitioner Family | DX: E11.621 Type 2 diabetes mellitus with foot ulcer (principal); L97.521 Non-pressure chronic ulcer of other part of left foot limited to breakdown of skin; E11.51 Type 2 diabetes mellitus with diabetic peripheral angiopathy without gangrene; I25.10 Atherosclerotic heart disease of native coronary artery without angina pectoris; M86.172 Other acute osteomyelitis, left ankle and foot | CPT/HCPCS: 36416; G0277 ==

== ENCOUNTER 2025-01-17 08:09 | Outpatient (CLI) | payer OTHER | END 2025-01-17 08:10 | disposition home or self-care (01) | LOC: CSHWCC 08:09 | PROVIDERS: ATTEND Nurse Practitioner Family | DX: E11.621 Type 2 diabetes mellitus with foot ulcer (principal); L97.521 Non-pressure chronic ulcer of other part of left foot limited to breakdown of skin; E11.51 Type 2 diabetes mellitus with diabetic peripheral angiopathy without gangrene; E11.69 Type 2 diabetes mellitus with other specified complication; M86.172 Other acute osteomyelitis, left ankle and foot; I25.10 Atherosclerotic heart disease of native coronary artery without angina pectoris | CPT/HCPCS: 36416 ==

== ENCOUNTER 2025-01-19 08:17 | Outpatient (CLI) | payer OTHER | END 2025-01-19 08:18 | disposition home or self-care (01) | LOC: CSHWCC 08:17 | PROVIDERS: ATTEND Nurse Practitioner Family | DX: E11.621 Type 2 diabetes mellitus with foot ulcer (principal); L97.521 Non-pressure chronic ulcer of other part of left foot limited to breakdown of skin; I25.10 Atherosclerotic heart disease of native coronary artery without angina pectoris; E11.51 Type 2 diabetes mellitus with diabetic peripheral angiopathy without gangrene; E11.69 Type 2 diabetes mellitus with other specified complication; M86.172 Other acute osteomyelitis, left ankle and foot | CPT/HCPCS: 36416; 99212; G0277; G0463 ==